=== PATIENT | female | born 2000 | race Caucasian/White ===

== ENCOUNTER → 2023-09-07 | Outpatient (CLI) | payer OTHER ==
[~2023-09-07] MED LIST: CLEOCIN150 MG PO; NKHM; OMNICEF300 MG PO
[2023-09-07 15:03] LABS: BASO # 0.1 10*3/uL (0.0-0.1); BASO % 0.6 % (0.0-1.0); EOS % 0.1 % (1.0-4.0); HEMATOCRIT 43.2 % (37.0-47.0); LYMPH % 16.5 % (27.0-41.0); MEAN CORPUSCULAR HGB 31.3 pg (27.0-31.0); MEAN CORPUSCULAR HGB CONC 34.7 g/dl (33.0-37.0); MONO # 0.8 10*3/uL (0.1-1.0); MONO % 6.3 % (3.0-9.0); NEUT # 9.2 10*3/uL (2.3-7.9); PLATELET COUNT AUTOMATED 346 10*3/uL (130-400); RED CELL DISTRI WIDTH 12.6 % (0-14.5); WHITE BLOOD COUNT 12.1 10*3/uL (4.8-10.8)
[2023-09-07 15:20] LABS: ALKALINE PHOSPHATASE 91 U/L (46-116); BUN 8 mg/dl (9-23); CHLORIDE 103 mmol/L (98-107); POTASSIUM 3.5 mmol/L (3.4-5.1); SGPT/ALT 23 U/L (5-49); TOTAL PROTEIN 8.4 gm/dL (6.0-8.0)
== END | disposition home or self-care (01) ==
LOC: RESCLI 13:42
PROVIDERS: Student in an Organized Health Care Education/Training Program; ATTEND Family Medicine
DX: F41.1 Generalized anxiety disorder (principal); K58.9 Irritable bowel syndrome, unspecified; Z82.49 Family history of ischemic heart disease and other diseases of the circulatory system; Z87.891 Personal history of nicotine dependence; Z79.899 Other long term (current) drug therapy; Z88.8 Allergy status to other drugs, medicaments and biological substances; Z98.890 Other specified postprocedural states

== ENCOUNTER 2023-09-15 17:24 | Emergency (ER) | payer OTHER ==
[~2023-09-15] VITALS: Ht 165.1 cm; Wt 93.0 kg
[~2023-09-15 17:24] MED LIST changes: -OMNICEF300 MG PO
[2023-09-15 18:49] LABS: BILIRUBIN Negative (Negative); BLOOD 3+ (Negative); CLARITY Clear (Clear); COLOR Yellow (Yellow); GLUCOSE Negative (Negative); KETONE 4+ (Negative); LEUKO ESTERASE Trace (Negative); NITRITE Negative (Negative); SPECIFIC GRAVITY 1.025 (1.001-1.030)
[2023-09-15 18:55] LABS: URINE AMPHETAMINES Negative (1000ng/ml); URINE BARBITURATES Negative (200ng/ml); URINE BENZODIAZEPINES Negative (200ng/ml); URINE CANNABINOIDS (THC) Positive (50ng/ml); URINE COCAINE Negative (300ng/ml); URINE METHADONE Negative (300ng/ml); URINE OPIATES Negative (300ng/ml); URINE PHENCYCLIDINE Negative (25ng/ml)
[2023-09-15 18:55] LABS: BASO % 0.4 % (0.0-1.0); EOS % 0.1 % (1.0-4.0); HEMATOCRIT 42.9 % (37.0-47.0); LYMPH % 21.8 % (27.0-41.0); MEAN CELL VOLUME 92.1 fl (81.0-99.0); MEAN CORPUSCULAR HGB 31.1 pg (27.0-31.0); MEAN CORPUSCULAR HGB CONC 33.8 g/dl (33.0-37.0); MONO # 0.7 10*3/uL (0.1-1.0); MONO % 7.3 % (3.0-9.0); NEUT # 6.3 10*3/uL (2.3-7.9); NEUT % 70.1 % (47.0-73.0); PLATELET COUNT AUTOMATED 336 10*3/uL (130-400); RED BLOOD COUNT 4.66 10*6/uL (4.10-5.10); RED CELL DISTRI WIDTH 12.5 % (0-14.5)
[2023-09-15 18:56] LABS: BACTERIA 1+; MUCOUS 2+; RBC 31-40 rbc/hpf (0-2)
[2023-09-15 19:20] LABS: CHLORIDE 104 mmol/L (98-107); POTASSIUM 3.6 mmol/L (3.4-5.1)
[2023-09-15 19:21] LABS: BUN < 5 mg/dl (9-23)
[2023-09-15] MEDS ORDERED: OMNICEF300 MG PO (21:35)
[2023-09-15] MEDS ORDERED: Ceftriaxone Sodium 1 GM/10 ML SYR IV ONE (21:40)
[2023-09-15] MEDS ORDERED: Water, Sterile 10 ML VIAL ONE (22:06)
== END 2023-09-15 22:16 | disposition home or self-care (01) ==
LOC: ED 17:24
PROVIDERS: Nurse Practitioner Family
DX: N39.0 Urinary tract infection, site not specified (principal); F41.9 Anxiety disorder, unspecified; Z91.041 Radiographic dye allergy status

== ENCOUNTER → 2023-09-15 | Outpatient (CLI) | payer OTHER ==
[2023-09-15 16:52] LABS: BILIRUBIN Negative (Negative); BLOOD 3+ (Negative); CLARITY Clear (Clear); COLOR Yellow (Yellow); GLUCOSE Negative (Negative); KETONE 4+ (Negative); LEUKO ESTERASE Negative (Negative); NITRITE Negative (Negative); PH 6.5 (4.5-8.0)
[2023-09-15 17:06] LABS: BACTERIA TRACE; MUCOUS 1+; RBC 16-20 rbc/hpf (0-2)
== END | disposition home or self-care (01) ==
LOC: LAB 16:26
PROVIDERS: ATTEND Internal Medicine
DX: N39.0 Urinary tract infection, site not specified (principal)